=== PATIENT | male | born 1970 | race Caucasian/White ===

== ENCOUNTER 2024-04-06 04:43 | Emergency (ER) | payer BC, SELFPAY ==
[2024-04-06 04:45] VITALS: BP 149/97; PULSE 87; RESP 18; TEMP 37.2; O2SAT 99; BMI 24.3
--- NOTE | 2024-04-06 04:54 | EDS_ITS ---
HPI History of Present Illness Chief Complaint: Dental Informant: patient Onset/Context/Timing Onset: Month(s) (1) Context: Gradual Onset Timing: Continuous Quality: Sharp, aching, throbbing Location: Right lower molars Worsened by: Nothing Relieved by: - (Nothing) Associated Symptoms Assocated Symptom - Dental: jaw swelling, face swelling, cold sensitivity and hot sensitivity; Negative for fever Narrative Narrative: Patient presents with right lower dental pain that has gotten worse over the past couple days. Patient states he noticed the pain approximately 1 month ago but it did not become severe until the last couple days. Patient states it is constant. Patient describes it as sharp, aching, and throbbing. Patient states it is over the right lower molars. Patient denies any fevers or chills. Patient does admit to swelling of his lower jaw. Patient also admits to hot and cold sensitivity. [facility] Medical History Hypothyroidism Home Medications ?Medication ?Instructions ?Recorded ?Last Taken ?Type fluticasone propionate 50 1 spray intranasal DAILY 04/06/24 Unknown History mcg/actuation nasal spray,suspension (Flonase Allergy Relief) folic acid 1 mg tablet 1 mg PO DAILY 04/06/24 Unknown History hydrocodone-acetaminophen 5-325mg 1 tab PO Q6H PRN PRN Pain 3 days 04/06/24 Unknown Rx 5mg-325mg #10 TABLETS ibuprofen 800 mg tablet (IBU) 800 mg PO PRN 04/06/24 Unknown History levothyroxine 200 mcg capsule 200 mcg PO DAILY 04/06/24 Unknown History penicillin V potassium 500 mg 500 mg PO 4X/DAY #40 tabs 04/06/24 Unknown Rx tablet Allergy/AdvReac Type Severity Reaction Status Date / Time No Known Allergies Allergy Verified 04/06/24 04:44 Surgical History History of tonsillectomy Social History Smoking Status: Current every day smoker tobacco type: e-cigarettes ROS ROS ED Constitutional Constitutional ED: Denies chills or fever(s) Eyes Eyes: Denies blurry vision or change in vision ENT ENT ED: Denies rhinorrhea or sore throat Cardiovascular Cardiovascular: Denies chest pain or palpitations Respiratory/Chest Respiratory/Chest: Denies cough or dyspnea Gastrointestinal Gastrointestinal: Denies nausea or vomiting Genitourinary Genitourinary ED: Denies dysuria or hematuria Musculoskeletal Musculoskeletal: Denies back pain or neck pain Integumentary Denies abscess or rash Neurologic Neurologic: Reports headache(s); Denies weakness Allergic/Immunologic Allergic/Immunologic ED: Denies mouth swelling or urticaria EXAM Physical Exam Const Vital Signs: 04/06/24 04:45 Temperature 99.0 F Temperature Source Oral Pulse Rate 87 Respiratory Rate 18 Blood Pressure 149/97 H Blood Pressure Mean 114 Pulse Ox 99 Oxygen Delivery Method Room Air Positive well nourished and well developed General Appearance ED: well developed and NAD HEENT HEENT Narrative: There is a dental carry noted over the right lower second molar. There is gingival edema around this tooth. There is no fluctuance. There is no evidence of any abscess. Mouth ED: Yes oral and palatal mucosa normal Mouth: oral and palatal mucosa normal Teeth and Gingiva: caries and gingiva abnormal Positive for gingival edema Throat: posterior oropharynx normal Neck supple and no JVD General: Negative for anterior neck swelling, tenderness or submandibular swelling Resp normal respiratory effort and clear to auscultation bilaterally Cardio regular rate and regular rhythm GI non-tender and non-distended Palpation: soft Neuro oriented x3, CN's II-XII intact bilaterally, moves all extremities, no focal motor deficits and no sensory deficits noted Sensorium / Orientation: alert Motor Exam: strength 5/5 throughout Psych mental status grossly normal MDM MDM MDM Narrative Medical decision making narrative: Nicotine cessation was discussed. Patient was advised that these are most likely infected dental caries. Patient was given a dose of Pen-Vee K and Lavon here. Patient was given a prescription for Pen-Vee K. Patient was given a prescription for a short course of Lavon. Patient was instructed to follow-up with a dentist in 5 to 7 days. Patient was instructed to return if worse in any way. Patient understood and was agreeable with the plan. All questions were answered. Discharge Plan Triage Chief Complaint: Dental ED Provider: Rik Saucedo Dx/Rx/DC Orders Clinical Impression: Infected dental caries, Nicotine vapor product user Instructions: ED Dental Pain, ED Dental Cavity Prescriptions: New hydrocodone-acetaminophen 5-325 mg tablet 1 tab PO Q6H PRN PRN (Reason: Pain) 3 Days Qty: 10 0RF penicillin V potassium 500 mg tablet 500 mg PO 4X/DAY Qty: 40 0RF No Action folic acid 1 mg tablet 1 mg PO DAILY levothyroxine 200 mcg capsule 200 mcg PO DAILY ibuprofen [IBU] 800 mg tablet 800 mg PO PRN fluticasone propionate [Flonase Allergy Relief] 50 mcg/actuation spray,suspension 1 spray intranasal DAILY Rx Instructions: administer into each nostril Primary Care Provider: Che Aguayo Referrals: Che Aguayo DO [Primary Care Provider] - 5-7 Days Dentist,Your [STAFF PHYSICIAN] - 5-7 Days Print Language: Yakut Disposition Disposition: Home, Self Care
[2024-04-06 05:20] VITALS: BP 137/90; PULSE 79; RESP 18; TEMP 37.1; O2SAT 99
[2024-04-06] MEDS: Penicillin Vk 250 MG Tablet 500 MG PO (05:26)
[2024-04-06] MEDS: HYDROcodone Bitartrate/Apap 5/325 Tablet PO (05:26)
== END 2024-04-06 05:27 | disposition home or self-care (01) ==
PROVIDERS: Emergency Provider Emergency Medicine; PCP Family Medicine; Visit Provider Emergency Medicine
DX: K02.9 Dental caries, unspecified (principal); E03.9 Hypothyroidism, unspecified; Z79.890 Hormone replacement therapy; F17.290 Nicotine dependence, other tobacco product, uncomplicated
CPT/HCPCS: 99283